=== PATIENT | female | born 1960 | race Caucasian/White ===

== ENCOUNTER 2020-12-17 09:16 | Emergency (ER) | payer MEDICARE, OTHER ==
[2020-12-17] MEDS ORDERED: VIBRAMYCIN100 MG PO (11:09)
[2020-12-17] MEDS ORDERED: LIDOCAINE 5% P1 EACH TOP (11:09)
== END 2020-12-17 11:30 | disposition home or self-care (01) ==
LOC: FER 09:16
DX: S22.42XA Multiple fractures of ribs, left side, initial encounter for closed fracture (principal); Z88.0 Allergy status to penicillin; Z88.1 Allergy status to other antibiotic agents; Z88.2 Allergy status to sulfonamides; Z88.5 Allergy status to narcotic agent; Z88.8 Allergy status to other drugs, medicaments and biological substances; W19.XXXA Unspecified fall, initial encounter; R06.02 Shortness of breath
CPT/HCPCS: 71250; 94010